=== PATIENT | female | born 1950 | race Caucasian/White ===

== ENCOUNTER 2021-06-26 04:45 | Observation (INO) ==
[2021-06-26] MEDS ORDERED: dilTIAZem HCl 5 MG/ML 5 ML VIAL IV STA (05:20)
--- NOTE | 2021-06-26 05:29 | Emergency Department Note ---
Impression & Plan Atrial fibrillation with rapid ventricular response Admit to the [facility] service ED Provider Note NAME: JESUS BOOGIE AGE: 71 SEX: F ARRIVES VIA: Walk-In INFORMANT: Patient ED PROVIDER(S): Vandana Elise DO CHIEF COMPLAINT: Irregular heartbeat PLAN: Disposition: Admit to the [facility] service Condition: Stable MEDICAL DECISION MAKING: This is a 71-year-old female patient with a history of atrial fibrillation who presents to the emergency department with a rapid heartbeat. The patient denies any changes in her medications. She does take Eliquis. The patient's blood pressure was borderline. She was given a dose of IV Cardizem with no change in her heart rhythm or rate. She was given IV crystalloid which did seem to increase her blood pressure. She was then given a dose of IV Lopressor which lowered the rate slightly but she remained in A. fib with RVR. I was able to review the patient's records from her [facility] portal and it appears that she had to be previously placed on an amiodarone drip to achieve cardioversion. Triage Nursing notes reviewed and agree with them. Vital Signs: reviewed and remarkable for tachycardia Differential diagnosis: Hyperthyroidism, dehydration, A. fib with RVR, cardiac ischemia ER treatment provided: IV normal saline IV Cardizem IV Lopressor Diagnostics interpreted by me: ECG: Atrial fibrillation with rapid ventricular response at a rate of 164; ST segment depression in the lateral leads. No ectopy. Cardiac Monitoring: Atrial fibrillation at a rate of 142 Laboratory studies: See below Imaging studies: As per my interpretation Portable chest x-ray: No acute infiltrates or pulmonary consolidations noted. HPI: 71/F arrives for evaluation of irregular heartbeat. The patient awoke from sleep at 3:15 AM with an irregular heartbeat. She has a history of atrial fibrillation and felt that her heart rate was fast. She describes the most recent episode in the past was October 2019 when she was noted to be dehydrated. At that time, she was given metoprolol and had a very significant reaction with subsequent hypotension. Since then, the patient has been taking Eliquis twice a day and has had no further episodes. The patient initially felt short of breath with this episode but now has no other associated symptoms other than the feelings of the rapid heart rate. The patient is currently scheduled to follow- up with a dysrhythmia specialist through cardiology at [facility] on July 20. ROS: See above HPI for pertinent positives & negatives. A total of 10 systems reviewed and were otherwise negative. PAST MEDICAL HISTORY:Atrial fibrillation; hypothyroidism PAST SURGICAL HISTORY:See Below FAMILY HISTORY:See Below SOCIAL HISTORY:The patient lives with her HOME MEDICATIONS:See Below ALLERGIES:See Below VITALS:See Below PHYSICAL EXAMINATION: HEENT: Head - normocephalic and atraumatic. Pupils are equal, round, and reactive to light. Extraocular eye muscles are intact, and sclera are anicteric. Nose - moist nasal mucosa without discharge. Mouth - moist buccal mucosa. Oropharynx is nonerythematous and there is no tonsillar exudate or edema noted. Neck: Supple; no thyromegaly or cervical lymphadenopathy Heart: Irregularly irregular rhythm with a tachycardic rate. There is a normal S1 and S2 with no murmurs, clicks, or gallops appreciated. Lungs: Clear to auscultation bilaterally with no wheezes, rales, or rhonchi. Abdomen: Soft, completely nontender, nondistended, with good bowel sounds. There are no palpable pulsatile masses or hepatosplenomegaly. There is no guarding, rigidity, or rebound noted. Extremities: No evidence of cyanosis, clubbing, or edema. There are easily palpable peripheral pulses. Skin: warm and dry with good turgor and no rashes. ED COURSE: Times/Reassessments: 0505: Patient was evaluated in room B2. A twelve-lead EKG was obtained as described above. An IV lock was initiated and labs were drawn as above. An order was placed for continuous cardiac monitoring. The patient is in A. fib with RVR at a rate of 142. She was bolused with 500 cc of normal saline solution and given 10 mg of IV Cardizem. A portable chest x-ray was obtained. The patient's rate and rhythm did not change. Her blood pressure dropped slightly. She was bolused with another 500 cc of saline After a lengthy discussion, the patient was agreeable to take a beta-melquiades. She was given 5 mg of IV Lopressor. This did decrease the rate but it remained above 100 and she was in atrial fibrillation. I discussed the case with the [facility] hospitalist and they will evaluate for further management. Vandana Elise DO Past Med/Surg History Social History Smoking Status: Former smoker Hx Alcohol Use: Yes Alcohol type: wine Hx Substance Use: No Preferred Language: Ugandan Communication Ability: Effective Results Engineer Required: No Beliefs That Will Affect Care: None Current Living Situation: Spouse Other Information That Helps Us Care for You: No Feels Safe at Home: Yes Safety Concerns: Feels Safe At This Time Assistive Devices: Glasses Allergies Allergies Allergy/AdvReac Type Severity Reaction Status Date / Time doxycycline Allergy Rash Unverified 06/26/21 08:07 Penicillins Allergy Rash Unverified 06/26/21 08:07 sulfasalazine Allergy Rash Unverified 06/26/21 08:07 Home Meds Home Medications Medication Instructions Recorded Confirmed alendronate 70 mg tablet 70 mg PO WK 06/26/21 06/26/21 apixaban 5 mg tablet (Eliquis) 5 mg PO BID 06/26/21 06/26/21 levothyroxine 88 mcg tablet 88 mcg PO UD 06/26/21 06/26/21 (Synthroid) Results & Data (ED) Vital Signs Vital Signs - 24 hr 06/26/21 09:00 06/26/21 10:30 Pulse Rate [Finger] 131 H 135 H Respiratory Rate 18 20 Blood Pressure [Right Arm] 122/85 102/69 Blood Pressure Mean [Right Arm] 97 80 Pulse Oximetry 97 97 Oxygen Delivery Method Room Air Laboratory Data Result diagrams: 06/26/21 05:00 06/26/21 07:20 Lab Results 06/26/21 06/26/21 06/26/21 Range/Units 05:00 05:00 05:00 WBC 7.64 (4.8-10.8) K/uL RBC 4.68 (4.2-5.4) M/uL Hgb 14.9 (12.0-16.0) g/dL Hct 43.7 (37-47) % MCV 93.4 (80-100) fL MCH 31.8 (25-34) pg MCHC 34.1 (32-36) g/dL RDW Std Deviation 45.8 (36.4-46.3) fL RDW Coeff of María 13.5 (11.5-14.5) % Plt Count 223 (130-400) K/uL MPV 11.6 H (7.4-10.4) fL Immature Gran % (Auto) 0.0 % Neut % (Auto) 43.8 % Lymph % (Auto) 35.6 % [place] % (Auto) 6.4 % Eos % (Auto) 13.7 % Baso % (Auto) 0.5 % Neut # (Auto) 3.34 (1.4-6.5) K/uL Lymph # (Auto) 2.72 (1.2-3.4) K/uL [place] # (Auto) 0.49 (0.11-0.59) K/uL Eos # (Auto) 1.05 H (0-0.5) K/uL Baso # (Auto) 0.04 (0-0.2) K/uL Immature Gran # (Auto) 0.00 (0.00-0.02) K/uL Sodium 140 (136-145) mmol/L Potassium (3.5-5.1) mmol/L Chloride 108 H (98-107) mmol/L Carbon Dioxide 23 (21-32) mmol/L Anion Gap 9 (3-11) BUN 15 (6-23) mg/dl Creatinine 0.68 (0.6-1.2) mg/dl Est Cr Clr Drug Dosing 77.9 ml/min Est GFR ( Amer) 102.0 ml/min Est GFR (Non-Af Amer) 88.0 ml/min BUN/Creatinine Ratio 22.1 H (10-20) Glucose 106 H (70-99(Fasting)) mg/dl Calcium 9.2 (8.5-10.1) mg/dl Magnesium 2.1 (1.7-2.4) mg/dl Total Bilirubin 0.4 (0.2-1.0) mg/dl AST (13-39) U/L ALT 40 (7-52) U/L Alkaline Phosphatase 95 (34-104) U/L Troponin I < 0.03 (0-0.04) ng/ml Total Protein 7.0 (6.0-8.3) gm/dl Albumin 4.1 (3.4-5.0) gm/dl Globulin 2.9 (2.5-4.0) gm/dl Albumin/Globulin Ratio 1.4 (0.9-2) TSH 3.046 (0.300-4.500) uIu/ml SARS-CoV-2, RNA, NAAT (NEGATIVE) 06/26/21 06/26/21 06/26/21 Range/Units 07:20 08:23 11:04 WBC (4.8-10.8) K/uL RBC (4.2-5.4) M/uL Hgb (12.0-16.0) g/dL Hct (37-47) % MCV (80-100) fL MCH (25-34) pg MCHC (32-36) g/dL RDW Std Deviation (36.4-46.3) fL RDW Coeff of María (11.5-14.5) % Plt Count (130-400) K/uL MPV (7.4-10.4) fL Immature Gran % (Auto) % Neut % (Auto) % Lymph % (Auto) % [place] % (Auto) % Eos % (Auto) % Baso % (Auto) % Neut # (Auto) (1.4-6.5) K/uL Lymph # (Auto) (1.2-3.4) K/uL [place] # (Auto) (0.11-0.59) K/uL Eos # (Auto) (0-0.5) K/uL Baso # (Auto) (0-0.2) K/uL Immature Gran # (Auto) (0.00-0.02) K/uL Sodium (136-145) mmol/L Potassium 3.5 (3.5-5.1) mmol/L Chloride (98-107) mmol/L Carbon Dioxide (21-32) mmol/L Anion Gap (3-11) BUN (6-23) mg/dl Creatinine (0.6-1.2) mg/dl Est Cr Clr Drug Dosing ml/min Est GFR ( Amer) ml/min Est GFR (Non-Af Amer) ml/min BUN/Creatinine Ratio (10-20) Glucose (70-99(Fasting)) mg/dl Calcium (8.5-10.1) mg/dl Magnesium (1.7-2.4) mg/dl Total Bilirubin (0.2-1.0) mg/dl AST 45 H (13-39) U/L ALT (7-52) U/L Alkaline Phosphatase (34-104) U/L Troponin I 0.09 H* (0-0.04) ng/ml Total Protein (6.0-8.3) gm/dl Albumin (3.4-5.0) gm/dl Globulin (2.5-4.0) gm/dl Albumin/Globulin Ratio (0.9-2) TSH (0.300-4.500) uIu/ml SARS-CoV-2, RNA, NAAT NEGATIVE (NEGATIVE) Administered Medications Apixaban (Apixaban 5 Mg Tablet) 5 mg PO BID COLE Stop: 07/26/21 12:07 Last Admin: 06/26/21 22:57 Dose: 5 mg Documented by: [id number] Admin: 06/26/21 12:56 Dose: 5 mg Documented by: [id number] Potassium Chloride/Sodium Chloride (Normal Saline W/20 Meq Kcl) 20 meq in 1,000 mls @ 125 mls/hr IV .Q8H COLE Stop: 06/27/21 14:11 Last Infusion: 06/27/21 07:30 Dose: 0 mls/hr Documented by: [id number] Admin: 06/26/21 22:58 Dose: 125 mls/hr Documented by: [id number] Infusion: 06/26/21 22:58 Dose: 125 mls/hr Documented by: [id number] Infusion: 06/26/21 19:42 Dose: 125 mls/hr Documented by: [id number] Infusion: 06/26/21 17:39 Dose: 0 mls/hr Documented by: [id number] Admin: 06/26/21 13:00 Dose: 100 mls/hr Documented by: [id number] Levothyroxine Sodium (Levothyroxine Sodium 88 Mcg Tablet) 88 mcg PO [id number] COLE Stop: 07/26/21 12:07 Last Admin: 06/27/21 05:26 Dose: 88 mcg Documented by: [id number] Admin: 06/26/21 13:26 Dose: 88 mcg Documented by: [id number] Discontinued Medications Diltiazem HCl (Diltiazem Hcl 5 Mg/Ml 5 Ml Vial) 10 mg IV NOW STA Stop: 06/26/21 05:21 Last Admin: 06/26/21 05:32 Dose: 10 mg Documented by: [id number] Cosigned by: [id number] Flecainide Acetate (Flecainide Acetate 100 Mg Tablet) 200 mg PO ONE ONE Stop: 06/26/21 15:16 Last Admin: 06/26/21 15:15 Dose: 200 mg Documented by: [id number] Sodium Chloride (Nss) 500 mls @ 999 mls/hr IV .Q31M ONE Stop: 06/26/21 06:29 Last Infusion: 06/26/21 07:08 Dose: 0 mls/hr Documented by: [id number] Admin: 06/26/21 06:17 Dose: 999 mls/hr Documented by: [id number] Sodium Chloride (Nss) 500 mls @ 999 mls/hr IV .Q31M ONE Stop: 06/26/21 06:40 Last Infusion: 06/26/21 07:08 Dose: 0 mls/hr Documented by: [id number] Admin: 06/26/21 06:17 Dose: 999 mls/hr Documented by: [id number] Diltiazem HCl 125 mg/ Dextrose 125 mls @ 10 mls/hr IV .[id number] COLE; Protocol Stop: 07/26/21 08:29 Last Titration: 06/26/21 18:13 Dose: 0 mg/hr, 0 mls/hr Documented by: [id number] Cosigned by: [id number] Titration: 06/26/21 17:23 Dose: 0 mg/hr, 0 mls/hr Documented by: [id number] Cosigned by: [id number] Titration: 06/26/21 17:00 Dose: 5 mg/hr, 5 mls/hr Documented by: [id number] Cosigned by: [id number] Titration: 06/26/21 12:00 Dose: 10 mg/hr, 10 mls/hr Documented by: [id number] Cosigned by: [id number] Titration: 06/26/21 11:15 Dose: 10 mg/hr, 10 mls/hr Documented by: [id number] Cosigned by: [id number] Admin: 06/26/21 09:51 Dose: 5 mg/hr, 5 mls/hr Documented by: [id number] Cosigned by: [id number] Sodium Chloride (Nss) 500 mls @ 125 mls/hr IV .Q4H COLE Stop: 06/26/21 21:29 Last Infusion: 06/26/21 18:14 Dose: 0 mls/hr Documented by: [id number] Admin: 06/26/21 17:30 Dose: 125 mls/hr Documented by: [id number] Sodium Chloride (Nss 1000ml) 500 mls @ 999 mls/hr IV .Q31M ONE Stop: 06/26/21 18:41 Last Infusion: 06/26/21 18:54 Dose: 0 mls/hr Documented by: [id number] Admin: 06/26/21 18:12 Dose: 999 mls/hr Documented by: [id number] Metoprolol Tartrate (Metoprolol Tartrate 1 Mg/Ml Vial) 5 mg IV NOW STA; Protocol Stop: 06/26/21 07:05 Last Admin: 06/26/21 07:09 Dose: 5 mg Documented by: [id number] Metoprolol Tartrate (Metoprolol Tartrate 25 Mg Tab) 25 mg PO ONE ONE Stop: 06/26/21 13:46 Last Admin: 06/26/21 13:47 Dose: 25 mg Documented by: [id number] Potassium Chloride (Potassium Chloride Crtab 20 Meq Tabcr) 20 meq PO NOW STA Stop: 06/26/21 14:37 Last Admin: 06/26/21 14:47 Dose: 20 meq Documented by: [id number] Discharge Plan Visit Data Chief Complaint: Cardiac Assessment Stated Complaint: A-FIB ED Provider: Vandana Elise Discharge Problem: Atrial fibrillation with rapid ventricular response Patient Disposition: Admitted As Inpatient Discharge Instructions Interventions: ED Discharge Assessment Last Done: 06/26/21 11:42
[2021-06-26 05:53] LABS: Basophils # (auto) 0.04 K/uL (0-0.2); Basophils % (auto) 0.5 %; Eosinophils # (auto) 1.05 K/uL (0-0.5); Eosinophils % (auto) 13.7 %; Hematocrit (blood only) 43.7 % (37-47); Hemoglobin 14.9 g/dL (12.0-16.0); Lymphocytes # (auto) 2.72 K/uL (1.2-3.4); Lymphocytes % (auto) 35.6 %; Mean Corpuscular Hemoglobin 31.8 pg (25-34); Mean Corpuscular Hgb Conc 34.1 g/dL (32-36); Mean Corpuscular Volume 93.4 fL (80-100); Mean Platelet Volume 11.6 fL (7.4-10.4); Monocytes # (auto) 0.49 K/uL (0.11-0.59); Monocytes % (auto) 6.4 %; Neutrophils # (auto) 3.34 K/uL (1.4-6.5); Neutrophils % (auto) 43.8 %; Platelet Count 223 K/uL (130-400); RDW Coefficient of Variation 13.5 % (11.5-14.5); RDW Standard Deviation 45.8 fL (36.4-46.3); Red Blood Count 4.68 M/uL (4.2-5.4); White Blood Count 7.64 K/uL (4.8-10.8)
[2021-06-26] MEDS ORDERED: SODIUM CHLORIDE 0.9% 500 ML IV ONE ×2 (05:59→06:10)
[2021-06-26 06:08] LABS: Troponin I < 0.03 ng/ml (0-0.04)
[2021-06-26 06:43] LABS: Alanine Aminotransferase 40 U/L (7-52); Albumin Globulin Ratio 1.4 (0.9-2); Albumin Level 4.1 gm/dl (3.4-5.0); Alkaline Phosphatase 95 U/L (34-104); Anion Gap 9 (3-11); BUN Creatinine Ratio 22.1 (10-20); Bilirubin,Total 0.4 mg/dl (0.2-1.0); Blood Urea Nitrogen 15 mg/dl (6-23); Calcium 9.2 mg/dl (8.5-10.1); Carbon Dioxide 23 mmol/L (21-32); Chloride 108 mmol/L (98-107); Creatinine Clr Calc Pharmacy 77.9 ml/min; Globulin 2.9 gm/dl (2.5-4.0); Glucose 106 mg/dl (70-99(Fasting)); Magnesium 2.1 mg/dl (1.7-2.4); Sodium 140 mmol/L (136-145)
[2021-06-26] MEDS ORDERED: METOPROLOL TARTRATE 1 MG/ML VIAL IV STA (07:04)
[2021-06-26 08:13] LABS: Potassium 3.5 mmol/L (3.5-5.1)
[2021-06-26] MEDS ORDERED: STAT IV Infusion **Titration per Protocol STA (08:26)
[2021-06-26] MEDS ORDERED: dilTIAZem HCL 125 MG in DEXTROSE 5% 100 ML IV SCH (08:30)
--- NOTE | 2021-06-26 09:03 | XRay Report ---
XR chest 1V portable CLINICAL HISTORY: Dysrhythmia COMPARISON STUDY: No previous studies for comparison. FINDINGS: Lung volumes are normal. Lungs are clear. There is no pneumothorax or pleural effusion. Car diac size is normal. Mediastinal contours are normal. There is no evidence for pulmonary edema. IMPRESSION: No acute cardiopulmonary findings. ACT 112: Negative or not required by law. Electronically signed by: Derick Walters M.D. 06/26/2021 9:01 AM
--- NOTE | 2021-06-26 09:23 | History & Physical Report ---
Date of Service June 26, 2021 Assessment & Plan (1) Atrial fibrillation with RVR: Plan: History of paroxysmal atrial fibrillation on Eliquis Woke up with palpitation and shortness of breath Has had recent admission to [facility] and required intravenous ami odarone Received 1 dose of Cardizem 20 mg IV and 1 dose of Lopressor 5 mg IV in the emergency room Heart rate went down to 140s from 160s EKG showed rate related ST depression in lateral leads Cardizem drip has been started and cardiology consulted May need amiodarone-await cardiology evaluation Serial troponins and EKG-doubt any ACS Echo as per cardiology evaluation (2) Paroxysmal atrial fibrillation: Plan: As above Has been on Eliquis and will continue (3) Hypothyroidism: Plan: Has been taking Synthroid 88 mcg a day and 112 on 1 out of 7 days (4) Hyperlipidemia: Plan: Cannot tolerate statins (5) Osteoporosis: Plan: Has been on Fosamax once a week DVT prophylaxis On Eliquis CODE STATUS Full History of Present Illness Chief Complaint: Palpitation with minimal shortness of breath at around 3 AM Primary Care Provid er: NO PCP She is a 71-year-old female with significant past medical history of atrial fibrillation and hypothyroidism apparently woke up from sleep at around 3 AM with palpitation and minimal shortness of breath. She denied any chest pressure and/or chest pain associated with the palpitation. She does not have any swelling of the legs or any recent weight gain. She has been on Eliquis and has been taking the medications regularly. She does not consume much of alcohol and caffeine and she has a strong family history of atrial fibrillation. She has had her last attack of palpitation when she was admitted in [facility] and required amiodarone infusion to control the heart rate and at the time intravenous Cardizem did not work. She also had a history of low blood pressure with beta-melquiades. She is a scheduled to have EP evaluation as an outpatient in the outpatient and she never had any cardiac cath and or EP studies and she did not have any cardioversion in the past. In the ER her heart rate was around 160 and she received 20 mg of IV Cardizem and later on 5 mg IV Lopressor and the heart rate was around 140. She was started with Cardizem drip and cardiology consultation taken for further evaluation and management. Allergies Allergy/AdvReac Type Severity Reaction Status Date / Time doxycycline Allergy Rash Unverified 06/26/21 08:07 Penicillins Allergy Rash Unverified 06/26/21 08:07 sulfasalazine Allergy Rash Unverified 06/26/21 08:07 Home Medications Medication Instructions Recorded Confirmed Type alendronate 70 mg tablet 70 mg PO WK 06/26/21 06/26/21 History apixaban 5 mg tablet (Eliquis) 5 mg PO BID 06/26/21 06/26/21 History levothyroxine 88 mcg tablet 88 mcg PO DIRECTED 06/26/21 06/26/21 History (Synthroid) Past Med/Surg History Social History Smoking Status: Never smoker Preferred Language: Lao Feels Safe at Home: Yes Review of Systems Review of Systems: All systems reviewed & are unremarkable except as noted in HPI & below Respiratory: Minimal shortness of breath Cardiovascular: Additional Comments: Palpitation Physical Exam Physical Exam: Lying in bed comfortably Constitutional: average body habitus; not ill appearing Eyes: PERRL, conjunctivae normal, anicteric sclerae ENMT: external ear and nose normal, oropharynx normal Neck: trachea midline, no thyromegaly Respiratory: no respiratory distress Auscultation: lungs clear to auscultation bilaterally Cardiovascular: Rate/Rhythm: + tachycardic and + irregularly irregular Heart Sounds: normal S1 and normal S2; no murmur Extremities: no edema Gastrointestinal (Abdomen): Inspection/Auscultation: normal bowel sounds; abdomen not distended Percussion/Palpation: abdomen soft; abdomen nontender Musculoskeletal: No acute arthritis in any joint Neurologic: PERRL, EOMI, accommodation nl, no face palsy, no dysarthria Results & Data Results & Data ([facility]) Vital Signs (Past 12 Hours) Vital Signs Temp Pulse Pulse Resp BP BP Pulse Ox 06/26/21 07:09 141 H 131/96 06/26/21 07:00 129 H 18 100/74 98 06/26/21 06:18 145 H 16 93/68 L 98 06/26/21 05:37 150 H 06/26/21 05:35 16 104/65 98 06/26/21 04:47 35.8 C L 71 20 118/85 97 06/26/21 04:46 16 98 Laboratory Results Short CBC 06/26/21 Range/Units 05:00 WBC 7.64 (4.8-10.8) K/uL Hgb 14.9 (12.0-16.0) g/dL Hct 43.7 (37-47) % Plt Count 223 (130-400) K/uL BMP 06/26/21 06/26/21 05:00 07:20 Sodium 140 Potassium 3.5 Chloride 108 H Carbon Dioxide 23 BUN 15 Creatinine 0.68 Glucose 106 H Calcium 9.2 Cardiac Enzymes 06/26/21 Range/Units 05:00 Troponin I < 0.03 (0-0.04) ng/ml Liver Function 06/26/21 06/26/21 Range/Units 05:00 07:20 Total Bilirubin 0.4 (0.2-1.0) mg/dl AST 45 H (13-39) U/L ALT 40 (7-52) U/L Alkaline Phosphatase 95 (34-104) U/L Albumin 4.1 (3.4-5.0) gm/dl Medications Administered Current Inpatient Medications Diltiazem HCl 125 mg/ Dextrose 125 mls @ 5 mls/hr IV .Q24H COLE; Protocol Stop: 07/26/21 08:29 Potassium Chloride/Sodium Chloride (Normal Saline W/20 Meq Kcl) 20 meq in 1,000 mls @ 100 mls/hr IV .Q10H COLE Stop: 06/27/21 14:29
--- NOTE | 2021-06-26 10:41 | Electrocardiogram Report ---
Test Reason : Blood Pressure : / mmHG Vent. Rate : 164 BPM Atrial Rate : 074 BPM P-R Int : 000 ms QRS Dur : 090 ms QT Int : 300 ms P-R-T Axes : 000 -09 118 degrees QTc Int : 495 ms Atrial fibrillation with rapid ventricular response with premature ventricular or aberrantly conducte d complexes ST depression, consider subendocardial injury Abnormal ECG No previous ECGs available Confirmed by Ry Fry ([id number]) on 06/26/2021 10:41:42 AM Referred By: REFERRED SELF Confirmed By:Pop Fry
[2021-06-26] MEDS: APIXABAN 5 MG TABLET PO SCH ×2 (12:56→22:57)
[2021-06-26] MEDS: NSS + 20MEQ KCL 20 MEQ/1,000 ML BAG IV SCH ×2 (13:00→22:58)
[2021-06-26] MEDS: LEVOTHYROXINE SODIUM 88 MCG TABLET PO SCH (13:26)
[2021-06-26] MEDS ORDERED: METOPROLOL TARTRATE 25 MG TAB PO ONE (13:45)
[2021-06-26] MEDS ORDERED: POTASSIUM CHLORIDE CRTAB 20 MEQ TABCR PO STA (14:36)
--- NOTE | 2021-06-26 14:47 | Cardiology Consultation ---
Date of Consultation June 26, 2021 Assessment & Plan (1) Atrial fibrillation with RVR: Repeat EKG performed 06/26/21 reveals atrial fibrillation at [address] depression has resolved with rate control. No symptoms suggestive of angina. Mildly elevated troponin level on second measurement, likely related to very high ventricular rates. Historical ischemic work up in 2019, normal. Echo with only Mild MR, mild AR, trace to mild TR in 2020. No recurrent AF episodes since 2019, off meds with exception of Eliquis. [id number] score of 2 for female, and age > 65. Patient received potassium with IVF ,will supplement orally. Proceed with trial of flecainide for acute pharmacologic conversion. Continue Eliquis. Update echo. History of Present Illness Attending Physician: Rogelio Daniel MD History of Present Illness Jabier Almaraz is a 71 year old female seen in cardiology consultation per the request of Dr Daniel for the evaluation of symptomatic atrial fibrillation with rapid ventricular response. Patient notes waking up at 3:15 am with sensation of fast and irregular heart rhythm, similar to her past episodes of atrial fibrillation in 2106 and 2019. Patient present to the ED with EKG confirming the presence of atrial fibrillation with RVR , [address] segment depression in the inferior leads and leads V3-V6 consistent with rate related ischemia. Patient received IV metoprolol and diltiazem and is now on a diltiazem infusion at 10 mg/ hr. She recently received metoprolol tartrate 25 mg x 1 by mouth, and ventricular rates are around 100 bpm, SBP 100 mm Hg, and she is asymptomatic in bed. She denies any symptoms suggestive of angina. She is and lives with her . They live most of the time in [facility] and also have a home near [place]. At the time of her prior AF episodes in 2016 and 2019 , she was in [place]. She was admitted to [facility] in 2019. She describes having converted on amiodarone , with subsequent thyroid dysfunction. She recalls past treatment with flecainide and amiodrone on a chronic basis, and believes she took both of these at the same time. She describes having stopped them in December, after feeling ill while on vacation in [place] at that time.In the interim, since 12/2019 she has been on no AV nellie blockers, but has remained on Eliquis 5 mg BID which she takes regularly with no significant missed doses, having received it last evening and this am. She was able to show me results of a nulcear stress test performed in 2019 in [place] which was reportedly normal. Transthoracic echo performed in 2019 there reveals normal LV myocardial thickness, Normal LVEF 60-65%, mild MR, Mild AR, trace to mild TR. Family: two brothers also have atrial fibrillation, one has had an ablation Allergies Allergy/AdvReac Type Severity Reaction Status Date / Time doxycycline Allergy Rash Unverified 06/26/21 08:07 Penicillins Allergy Rash Unverified 06/26/21 08:07 sulfasalazine Allergy Rash Unverified 06/26/21 08:07 Home Medications Medication Instructions Recorded Confirmed Type alendronate 70 mg tablet 70 mg PO WK 06/26/21 06/26/21 History apixaban 5 mg tablet (Eliquis) 5 mg PO BID 06/26/21 06/26/21 History levothyroxine 88 mcg tablet 88 mcg PO UD 06/26/21 06/26/21 History (Synthroid) Patient History Social History Smoking Status: Former smoker Hx Alcohol Use: Yes Alcohol type: wine Hx Substance Use: No Preferred Language: Cymraes Communication Ability: Effective Clamp Operator Required: No Beliefs That Will Affect Care: None Current Living Situation: Spouse Other Information That Helps Us Care for You: No Feels Safe at Home: Yes Safety Concerns: Feels Safe At This Time Assistive Devices: Glasses Review of Systems Review of Systems: All systems reviewed & are unremarkable except as noted in HPI & below Physical Exam Constitutional: WD/WN, vitals as above Respiratory: normal respiratory effort, lungs clear to auscultation Cardiovascular: Rate/Rhythm: + tachycardic and + irregularly irregular Heart Sounds: no murmur Extremities: no edema Gastrointestinal (Abdomen): normal bowel sounds, soft, nontender, no hepatosplenomegaly Neurologic: PERRL, EOMI, accommodation nl, no face palsy, no dysarthria Results & Data ([facility]) Vital Signs (Past 12 Hours) Vital Signs Temp Pulse Pulse Resp BP BP Pulse Ox 06/26/21 14:04 115 H 95/60 L 06/26/21 13:45 110 H 102/66 06/26/21 12:13 36.5 C 72 16 132/78 99 06/26/21 11:42 132 H 20 113/85 98 06/26/21 10:30 135 H 20 102/69 97 06/26/21 09:00 131 H 18 122/85 97 06/26/21 07:09 141 H 131/96 06/26/21 07:00 129 H 18 100/74 98 06/26/21 06:18 145 H 16 93/68 L 98 06/26/21 05:37 150 H 06/26/21 05:35 16 104/65 98 06/26/21 04:47 35.8 C L 71 20 118/85 97 06/26/21 04:46 16 98 Laboratory Results Cardiac Enzymes 06/26/21 06/26/21 06/26/21 Range/Units 05:00 07:20 11:04 AST 45 H (13-39) U/L Troponin I < 0.03 0.09 H* (0-0.04) ng/ml CBC 06/26/21 Range/Units 05:00 WBC 7.64 (4.8-10.8) K/uL RBC 4.68 (4.2-5.4) M/uL Hgb 14.9 (12.0-16.0) g/dL Hct 43.7 (37-47) % Plt Count 223 (130-400) K/uL Neut # (Auto) 3.34 (1.4-6.5) K/uL Lymph # (Auto) 2.72 (1.2-3.4) K/uL [place] # (Auto) 0.49 (0.11-0.59) K/uL Eos # (Auto) 1.05 H (0-0.5) K/uL Baso # (Auto) 0.04 (0-0.2) K/uL Comprehensive Metabolic Panel 06/26/21 06/26/21 Range/Units 05:00 07:20 Sodium 140 (136-145) mmol/L Potassium 3.5 (3.5-5.1) mmol/L Chloride 108 H (98-107) mmol/L Carbon Dioxide 23 (21-32) mmol/L BUN 15 (6-23) mg/dl Creatinine 0.68 (0.6-1.2) mg/dl Glucose 106 H (70-99(Fasting)) mg/dl Calcium 9.2 (8.5-10.1) mg/dl AST 45 H (13-39) U/L ALT 40 (7-52) U/L Alkaline Phosphatase 95 (34-104) U/L Total Protein 7.0 (6.0-8.3) gm/dl Albumin 4.1 (3.4-5.0) gm/dl Intake and Output 06/25/21 06/26/21 06/26/21 22:59 06:59 14:59 Intake Total 1014.5 / 1014.5 Output Total 400 / 400 Balance 614.5 / 614.5 Intake: IV 1014.5 / 1014.5 Sodium Chloride 0.9% 500 ml @ 1000 / 1000 999 mls/hr IV .Q31M ONE Rx#: [id number] dilTIAZem HCL 125 mg In 14.5 / 14.5 Dextrose 5% 100 ml @ 10 MG/HR 10 mls/hr IV .[id number] [facility] Rx#: [id number] Output: Urine 400 / 400 Other: Weight 77 kg 77.2 kg Weight Measurement Method Chair Scale Built in [facility] Patient Weight 06/27/21 06:59 Weight 77.2 kg
[2021-06-26] MEDS ORDERED: FLECAINIDE ACETATE 100 MG TABLET PO ONE (15:15)
--- NOTE | 2021-06-26 16:27 | Electrocardiogram Report ---
Test Reason : Blood Pressure : / mmHG Vent. Rate : 117 BPM Atrial Rate : 153 BPM P-R Int : 000 ms QRS Dur : 078 ms QT Int : 346 ms P-R-T Axes : 000 007 059 degrees QTc Int : 482 ms Atrial fibrillation with rapid ventricular response Nonspecific ST abnormality Abnormal ECG When compared with ECG of 26-JUN-2021 04:56, No significant change was found Confirmed by Ry Fry ([id number]) on 06/26/2021 4:26:42 PM Referred By: REFERRED SELF Confirmed By:Pop Fry
[2021-06-26] MEDS: SODIUM CHLORIDE 0.9% 500 ML IV SCH ×2 (17:30→17:39)
[2021-06-26] MEDS ORDERED: SODIUM CHLORIDE 0.9% 1000ML 500 ML IV ONE (18:11)
[2021-06-27] MEDS: LEVOTHYROXINE SODIUM 88 MCG TABLET PO SCH (05:26)
[2021-06-27] MEDS: NSS + 20MEQ KCL 20 MEQ/1,000 ML BAG IV SCH (07:52)
[2021-06-27] MEDS: APIXABAN 5 MG TABLET PO SCH (09:02)
[2021-06-27] MEDS ORDERED: METOPROLOL TARTRATE 25 MG TAB PO SCH (09:30)
[2021-06-27 09:41] LABS: Hemoglobin 13.3 g/dL (12.0-16.0); Mean Corpuscular Hemoglobin 32.1 pg (25-34); Mean Corpuscular Volume 94.2 fL (80-100); Mean Platelet Volume 10.9 fL (7.4-10.4); Platelet Count 190 K/uL (130-400); RDW Standard Deviation 48.2 fL (36.4-46.3); Red Blood Count 4.14 M/uL (4.2-5.4); White Blood Count 7.94 K/uL (4.8-10.8)
[2021-06-27 10:08] LABS: Magnesium 1.9 mg/dl (1.7-2.4)
[2021-06-27 10:09] LABS: Troponin I 0.11 ng/ml (0-0.04)
--- NOTE | 2021-06-27 10:30 | Electrocardiogram Report ---
Test Reason : Blood Pressure : / mmHG Vent. Rate : 071 BPM Atrial Rate : 071 BPM P-R Int : 156 ms QRS Dur : 088 ms QT Int : 458 ms P-R-T Axes : 072 013 038 degrees QTc Int : 497 ms Normal sinus rhythm Nonspecific ST abnormality Prolonged QT Abnormal ECG When compared with ECG of 26-JUN-2021 14:39, Sinus rhythm has replaced Atrial fibrillation Vent. rate has decreased BY 46 BPM Confirmed by Ry Fry ([id number]) on 06/27/2021 10:29:50 AM Referred By: REFERRED SELF Confirmed By:Pop Fry
[2021-06-27 10:59] LABS: Mean Corpuscular Hgb Conc 34.1 g/dL (32-36)
[2021-06-27] MEDS ORDERED: MAGNESIUM OXIDE 400 MG TAB PO SCH (11:30)
--- NOTE | 2021-06-27 11:30 | Cardiology Progress Note ---
Date of Service June 27, 2021 Assessment & Plan (1) Atrial fibrillation with RVR: (2) QT prolongation: (3) Dizziness: (4) Troponin I above reference range: Plan: (1) Atrial fibrillation with RVR: -Patient converted to sinus rhythm yesterday , 06/26/21, at 4:55 pm, while on diltiazem infusion 10 mg/min, receiving a single dose of flecainide 200 mg at 3:15 bpm, and metoprolol tartrate 25 mg x 1 at 1:47 pm. -No conversion pause, and has been in SR in the 70s since. -for 1 hour post conversion, symptomatic low BP observed, SBP in 70s to 80s with HR 70s at that time shortly after conversion, resolved with IV fluid bolus. -Echo this am reveals normal LV myocardial thickness, LVEF 60-65%, Mild TR, PASP 41 mm Hg, borderline LA enlargement. -Await chemistry panel results. If findings stable, anticipate DC to home on new metoprolol tartrate 12.5 mg BID. Continue chronic Eliquis 5 mg BID. -Has upcoming EP consult with [facility], and pt is going to call Monday and try to move up visit. -Metoprolol can by titrate as tolerated as outpatient. (2) QT prolongation: -Repeat EKG this am , SR at 71 bpm QTc 497 ms. Otherwise normal. -Mg level 1.9 this am. Administer oral dose of magnesium. Await other chem panel results. -Avoid QT prolonging agest. Follow up with EP as outpatient. (3) Dizziness: -noted post cardioversion. Perhaps related to receiving Diltiazem, metoprolol, and flecainide in short time frame. Resolved. (4) Troponin I above reference range: -At time of presentation with AF RVR , ventricular rate in excess of 160 bpm, significant ST depression noted without ketan angina. Has h/o normal nuclear stress in 2019 in [place], no significant structural heart disease on echo in 2019 and again this admission. Very minimal Troponin elevation noted consistent with myocardial strain in setting of rapid rate. Await CMP results, likely discharge after lunch. Medications: Metoprolol tartrate 12.5 mg BID (new), continue Eliquis 5 mg BID. Outpt cardiology / EP follow up in [place]. Admission and Anticipated Discharge Date Admission Date: June 26, 2021 Subjective Mrs Almaraz is seen in cardiology follow up of symptomatic atrial fibrillation. She feels well this am. Denies dizziness at present. Telemetry reveals SR in the 70s. Review of Systems Review of Systems: All systems reviewed & are unremarkable except as noted in HPI & below Physical Exam Physical Exam: Temp Pulse Resp BP Pulse Ox 36.3 C L 90 12 124/68 96 06/27/21 07:34 06/27/21 09:30 06/27/21 07:34 06/27/21 09:30 06/27/21 08:27 Constitutional: WD/WN, vitals as above Respiratory: normal respiratory effort, lungs clear to auscultation Cardiovascular: Rate/Rhythm: + tachycardic and + irregularly irregular Heart Sounds: no murmur Extremities: no edema Gastrointestinal (Abdomen): normal bowel sounds, soft, nontender, no hepatosplenomegaly Neurologic: PERRL, EOMI, accommodation nl, no face palsy, no dysarthria Results & Data ([facility]) Laboratory Results Cardiac Enzymes 06/26/21 06/26/21 06/27/21 Range/Units 11:04 16:38 09:29 Troponin I 0.09 H* 0.12 H* 0.11 H* (0-0.04) ng/ml CBC 06/27/21 Range/Units 09:29 WBC 7.94 (4.8-10.8) K/uL RBC 4.14 L (4.2-5.4) M/uL Hgb 13.3 (12.0-16.0) g/dL Hct 39.0 (37-47) % Plt Count 190 (130-400) K/uL Intake and Output 06/26/21 06/27/21 06/27/21 22:59 06:59 14:59 Intake Total 1516.917 / 2531.417 1000 / 1000 Output Total 350 / 751 500 / 500 Balance 1515.917 / 1780.417 -350 / 1780.417 500 / 500 Intake: IV 1516.917 / 2531.417 1000 / 1000 Nss + 20Meq KCl 20 meq In 1,000 873.333 / 906.163 2277 / 1000 ml @ 125 mls/hr IV .Q8H [facility] Rx #:[id number] Sodium Chloride 0.9% 1000ML 500 500 / 500 ml @ 999 mls/hr IV .Q31M ONE Rx#:[id number] Sodium Chloride 0.9% 500 ml @ 91.667 / 91.667 125 mls/hr IV .Q4H [facility] Rx#: [id number] dilTIAZem HCL 125 mg In 51.917 / 66.417 Dextrose 5% 100 ml @ 10 MG/HR 10 mls/hr IV .[id number] [facility] Rx#: [id number] Output: Urine 350 / 750 500 / 500 # Bowel Movements Other: # Unmeasured Voids 1 Weight 78.4 kg Weight Measurement Method Standing Scale
[2021-06-27 11:53] LABS: Albumin Globulin Ratio 1.4 (0.9-2); Albumin Level 3.7 gm/dl (3.4-5.0); BUN Creatinine Ratio 8.8 (10-20); Bilirubin,Total 0.5 mg/dl (0.2-1.0); Calcium 8.4 mg/dl (8.5-10.1); Creatinine Clr Calc Pharmacy 93.7 ml/min; Est GFR (African American) 108.1 ml/min; Est GFR (Non-African American) 93.3 ml/min; Globulin 2.6 gm/dl (2.5-4.0); Potassium 4.1 mmol/L (3.5-5.1); Total Protein 6.3 gm/dl (6.0-8.3)
--- NOTE | 2021-06-27 12:10 | Hospitalist Progress Note ---
Date of Service June 27, 2021 Assessment & Plan (1) Atrial fibrillation with RVR: Plan: History of paroxysmal atrial fibrillation on Eliquis Woke up with palpitation and shortness of breath Has had recent admission to [facility] and required intravenous ami odarone Received 1 dose of Cardizem 20 mg IV and 1 dose of Lopressor 5 mg IV in the emergency room Heart rate went down to 140s from 160s EKG showed rate related ST depression in lateral leads Cardizem drip has been started and cardiology consulted May need amiodarone-await cardiology evaluation Serial troponins and EKG-doubt any ACS Echo-normal LV wall thickness and no wall abnormalities, LV systolic function is normal with EF of 60 to 65%, RV is normal in size and function, borderline left atrial enlargement and there is mild TR. mild pulmonary hypertension with PA systolic pressure is estimated to be 41 mmHg Remains in sinus rhythm since last evening We will continue metoprolol tartrate 12.5 mg twice daily We will have cardiology appointment sooner than later in [place] (2) Paroxysmal atrial fibrillation: Plan: As above Has been on Eliquis and will continue Reverted to sinus rhythm and is maintaining (3) Hypothyroidism: Plan: Has been taking Synthroid 88 mcg a day and 112 on 1 out of 7 days (4) Hyperlipidemia: Plan: Cannot tolerate statins (5) Osteoporosis: Plan: Has been on Fosamax once a week DVT prophylaxis On Eliquis CODE STATUS Full Discharge home this afternoon Admission and Anticipated Discharge Date Admission Date: June 26, 2021 Subjective 06/27/2021 The patient was seen and examined in telemetry unit She has had an episode of low blood pressure yesterday likely contributed by IV Cardizem which responded well to fluid resuscitation She is converted to sinus rhythm and maintaining it since last evening Denies any symptoms as of this morning and will be going home this afternoon Review of Systems Review of Systems: All systems reviewed and are unremarkable except as noted below Respiratory: Minimal shortness of breath Cardiovascular: Additional Comments: Palpitation Physical Exam Physical Exam: Lying in bed comfortably Constitutional: average body habitus; not ill appearing Eyes: PERRL, conjunctivae normal, anicteric sclerae ENMT: external ear and nose normal, oropharynx normal Neck: trachea midline, no thyromegaly Respiratory: no respiratory distress Auscultation: lungs clear to auscultation bilaterally Cardiovascular: Rate/Rhythm: + tachycardic and + irregularly irregular H eart Sounds: normal S1 and normal S2; no murmur Extremities: no edema Gastrointestinal (Abdomen): Inspection/Auscultation: normal bowel sounds; abdomen not distended Percussion/Palpation: abdomen soft; abdomen nontender Musculoskeletal: No acute arthritis in any joint Neurologic: PERRL, EOMI, accommodation nl, no face palsy, no dysarthria Psychiatric: A+Ox3, euthymic affect Results & Data Results & Data ([facility]) Vital Signs (Past 12 Hours) Vital Signs Temp Pulse Pulse Pulse Resp BP BP 06/27/21 11:16 36.6 C 76 14 127/78 06/27/21 09:30 90 124/68 06/27/21 08:42 69 06/27/21 08:27 06/27/21 07:34 36.3 C L 76 12 125/73 06/27/21 02:51 36.5 C 77 17 112/66 Pulse Ox Pulse Ox 06/27/21 11:16 94 06/27/21 09:30 06/27/21 08:42 06/27/21 08:27 96 06/27/21 07:34 96 06/27/21 02:51 96 Laboratory Results Short CBC 06/27/21 Range/Units 09:29 WBC 7.94 (4.8-10.8) K/uL Hgb 13.3 (12.0-16.0) g/dL Hct 39.0 (37-47) % Plt Count 190 (130-400) K/uL BMP 06/27/21 09:33 Sodium 142 Potassium 4.1 Chloride 114 H Carbon Dioxide 24 BUN 5 L Creatinine 0.57 L Glucose 94 Calcium 8.4 L Cardiac Enzymes 06/26/21 06/27/21 Range/Units 16:38 09:29 Troponin I 0.12 H* 0.11 H* (0-0.04) ng/ml Liver Function 06/27/21 Range/Units 09:33 Total Bilirubin 0.5 (0.2-1.0) mg/dl AST 40 H (13-39) U/L ALT 39 (7-52) U/L Alkaline Phosphatase 85 (34-104) U/L Albumin 3.7 (3.4-5.0) gm/dl Medications Administered Current Inpatient Medications Apixaban (Apixaban 5 Mg Tablet) 5 mg PO BID [facility] Stop: 07/26/21 12:07 Last Admin: 06/27/21 09:02 Dose: 5 mg Documented by: Levothyroxine Sodium (Levothyroxine Sodium 88 Mcg Tablet) 88 mcg PO SuMoTErasmo ThSa@0630 [facility] Stop: 07/26/21 12:07 Last Admin: 06/27/21 05:26 Dose: 88 mcg Documented by: Levothyroxine Sodium (Levothyroxine Sodium 88 Mcg Tablet) 132 mcg PO Fr@0630 [facility] Stop: 08/01/21 06:29 Magnesium Oxide (Magnesium Oxide 400 Mg Tab) 400 mg PO QAM [facility] Stop: 07/27/21 11:29 Metoprolol Tartrate (Metoprolol Tartrate 25 Mg Tab) 12.5 mg PO BID [facility] Stop: 07/27/21 09:29 Last Admin: 06/27/21 09:30 Dose: 12.5 mg Documented by:
--- NOTE | 2021-06-27 12:26 | Communication Note ---
Date of Service: June 27, 2021 Potassium level 4.1 , stable. AST with mild ongoing elevation at 40 u/lit Pt with known dyslipidemia. Recently stopped trial of rosuvastatin prior to hospital stay. OK for discharge with plan as previously noted. Follow up as outpatient for dyslipidemia.
--- NOTE | 2021-06-27 18:08 | Discharge Summary ---
Date of Service June 27, 2021 Admission HPI Per Admitting Provider She is a 71-year-old female with significant past medical history of atrial fibrillation and hypothyroidism apparently woke up from sleep at around 3 AM with palpitation and minimal shortness of breath. She denied any chest pressure and/or chest pain associated with the palpitation. She does not have any swelling of the legs or any recent weight gain. She has been on Eliquis and has been taking the medications regularly. She does not consume much of alcohol and caffeine and she has a strong family history of atrial fibrillation. She has had her last attack of palpitation when she was admitted in [facility] and required amiodarone infusion to control the heart rate and at the time intravenous Cardizem did not work. She also had a history of low blood pressure with beta-melquiades. She is a scheduled to have EP evaluation as an outpatient in the outpatient and she never had any cardiac cath and or EP studies and she did not have any cardioversion in the past. In the ER her heart rate was around 160 and she received 20 mg of IV Cardizem and later on 5 mg IV Lopressor and the heart rate was around 140. She was started with Cardizem drip and cardiology consultation taken for further evaluation and management. Admission Exam Per Admitting Provider Physical Exam: Lying in bed comfortably Constitutional: average body habitus; not ill appearing Eyes: PERRL, conjunctivae normal, anicteric sclerae ENMT: external ear and nose normal, oropharynx normal Neck: trachea midline, no thyromegaly Respiratory: no respiratory distress Auscultation: lungs clear to auscultation bilaterally Cardiovascular: Rate/Rhythm: + tachycardic and + irregularly irregular Heart Sounds: normal S1 and normal S2; no murmur Extremities: no edema Gastrointestinal (Abdomen): Inspection/Auscultation: normal bowel sounds; abdomen not distended Percussion/Palpation: abdomen soft; abdomen nontender Musculoskeletal: No acute arthritis in any joint Neurologic: PERRL, EOMI, accommodation nl, no face palsy, no dysarthria Principal Diagnosis Atrial fibrillation with RVR-converted to sinus rhythm Discharge Exam Lying in bed comfortably Constitutional average body habitus; not ill appearing Eyes PERRL, conjunctivae normal, anicteric sclerae ENMT external ear and nose normal, oropharynx normal Neck trachea midline, no thyromegaly Respiratory no respiratory distress Auscultation: lungs clear to auscultation bilaterally Cardiovascular Rate/Rhythm: + tachycardic and + irregularly irregular Heart Sounds: normal S1 and normal S2; no murmur Extremities: no edema Gastrointestinal (Abdomen) Inspection/Auscultation: normal bowel sounds; abdomen not distended Percussion/Palpation: abdomen soft; abdomen nontender Neurologic PERRL, EOMI, accommodation nl, no face palsy, no dysarthria Psychiatric A+Ox3, euthymic affect Discharge Data Allergies Allergy/AdvReac Type Severity Reaction Status Date / Time doxycycline Allergy Rash Unverified 06/26/21 08:07 Penicillins Allergy Rash Unverified 06/26/21 08:07 sulfasalazine Allergy Rash Unverified 06/26/21 08:07 Consultations 06/26/21 07:43 ED Decision to Admit Stat 06/26/21 08:27 Consult Cardiology Routine Hospital Course (1) Atrial fibrillation with RVR: History of paroxysmal atrial fibrillation on Eliquis Woke up with palpitation and shortness of breath Has had recent admission to [facility] and required intravenous amiodarone Received 1 dose of Cardizem 20 mg IV and 1 dose of Lopressor 5 mg IV in the emergency room Heart rate went down to 140s from 160s EKG showed rate related ST depression in lateral leads Cardizem drip has been started and cardiology consulted May need amiodarone-await cardiology evaluation Serial troponins and EKG-doubt any ACS Echo-normal LV wall thickness and no wall abnormalities, LV systolic function is normal with EF of 60 to 65%, RV is normal in size and function, borderline left atrial enlargement and there is mild TR. mild pulmonary hypertension with PA systolic pressure is estimated to be 41 mmHg Remains in sinus rhythm since last evening We will continue metoprolol tartrate 12.5 mg twice daily We will have cardiology appointment sooner than later in [place] (2) Paroxysmal atrial fibrillation: As above Has been on Eliquis and will continue Reverted to sinus rhythm and is maintaining (3) Hypothyroidism: Has been taking Synthroid 88 mcg a day and 112 on 1 out of 7 days (4) Hyperlipidemia: Cannot tolerate statins (5) Osteoporosis: Has been on Fosamax once a week DVT prophylaxis On Eliquis CODE STATUS Full Discharge home this afternoon Total Time Total Time Spent Total Time Spent (In Minutes): 35 mnutes Discharge Plan Discharge Items Patient Disposition: Home - Self-Care Reason For Visit: ATRIAL FIBRILLATION WITH RVR Discharge Diagnosis: Atrial fibrillation with RVR-converted to sinus rhythm Condition on Discharge: Fair Activity: Resume your previous activity Non-emergency contact: Primary Care Provider Call non-emergency contact if: you have any medication questions and your symptoms worsen Follow-up/Referrals: PCP,NO [Primary Care Provider] - (Please make an appointment with your primary care physician within 7 days ) Diet: Heart Healthy Addtl Attending Provider Instructions: Please take precautions to avoid falls Please take your medications as advised Have outpatient cardiology follow-up in [place] as soon as possible Please make an appointment with your PCP within 7 days Pending Studies at Discharge: No Stand-Alone Forms: My [email or web address], Smoking Cessation Medications and DC Order Prescriptions: New metoprolol tartrate 25 mg Tablet 12.5 mg PO BID Qty: 15 RF: 0 Continued alendronate 70 mg tablet 70 mg PO WK RF: 0 levothyroxine [Synthroid] 88 mcg tablet 88 mcg PO UD RF: 0 Eliquis 5 mg tablet 5 mg PO BID RF: 0 Discharge Orders: Discharge Order (Routine); Ordered 06/27/21 Ordered By: Rogelio Daniel Admission Data Admit Date/Time: 06/26/21 11:12 Attending Provider: Rogelio Daniel Admit Provider: Rogelio Daniel Primary Care Provider: PCP,NO Other Providers: Rogelio Daniel ; Audi Ramsey ; Cl Jordan ; Julito Hickey ; Manjit Ariza ; IanErich long ; Adria Cao ; Arlene Pittman ; Mary Jones ; Arlene Martin ; [address] Other Interventions: Discharge Summary Assessment (RN) Last Done: 06/27/21 13:23
[2021-07-02] MEDS ORDERED: LEVOTHYROXINE SODIUM 88 MCG TABLET PO SCH (06:30)
== END 2021-06-27 14:14 | disposition home or self-care (01) | DRG 310 ==
LOC: ED 04:45 → 2S 11:12 → INTOOBSV 11:12 → 2S 11:42